=== PATIENT | male | born 1960 | race Caucasian/White ===

== ENCOUNTER 2018-09-09 16:44 | Emergency (ER) | payer OTHER ==
[2018-09-09] MEDS ORDERED: MIDAZOLAM INJ 5 MG/5 ML VIAL ONE (16:57)
[2018-09-09] MEDS ORDERED: SODIUM CHLORIDE 0.9% 50ML 50 ML ONE (16:57)
[2018-09-09] MEDS ORDERED: MIDAZOLAM INJ 25 MG in SODIUM CHLORIDE 0.9% 50ML 25 ML IVPB SCH (17:00)
[2018-09-09] MEDS ORDERED: ETOMIDATE INJECTION 2 MG/ML 20ML VIAL IV ONE (17:12)
[2018-09-09] MEDS ORDERED: SUCCINYLCHOLINE CHLORIDE 200 MG/10 ML VIAL IV ONE (17:12)
[2018-09-09] MEDS ORDERED: MIDAZOLAM INJ 5 MG/5 ML VIAL IV ONE (17:12)
[2018-09-09] MEDS ORDERED: SODIUM CHLORIDE 0.9% 1000ML 1,000 ML ONE (17:20)
[2018-09-09] MEDS ORDERED: VECURONIUM BROMIDE 10 MG VIAL IV ONE (17:22)
--- NOTE | 2018-09-09 17:26 | ED.PDOC ---
History of Present Illness - General Chief Complaint: Cardiac Respiratory Arrest Time Seen by Provider: 09/09/18 17:11 Source: RN notes reviewed - History of Present Illness Initial Comments: THIS PATIENT WAS IN THE WAITING ROOM WAITING FOR A FAMILY MEMBER WHEN HE SUDDENLY COLLAPSED AND WENT INTO CARDIAC ARREST. HE WAS PLACED IN A STRETCHER AND BROUGHT INTO ROOM ONE WHERE A STRIP REVEALED HIM TO BE IN VENTRICULAR TACHYCARDIA, HE WAS PULSELESS AND CYANOTIC. CHEST COMPRESSIONS WERE STARTED AND A LINE PERIPHERAL LINE WAS PLACED. HE WAS BAGGED AND THEN I INTUBATED HIM WITH AN 8 MM MOZAMBICAN ENDOTRACHEAL TUBE. AFTER ABOUT 10 MINUTES OF CHEST COMPRESSION WE OBTAINED A PULSE AND A BLOOD PRESSURE. EVIDENTLY HE HAD DEVELOPED ATRIAL FIBRILLATION AND HAD BEEN DEFIBRILLATED TWICE, LAST TIME THIS PAST WEDNESDAY. DR. MALONE AND DR. Jackson HAVE BEEN TAKING CARE OF HIM. HE IS ON ELIQUIS AND METOPROLOL AND AMIODARONE. Timing/Duration: other - JUST CLAIMS DIRECTOR Severity: severe Activities at Onset: rest Associated Symptoms: other - THE PATIENT IS UNCONCSIOUS Allergies/Adverse Reactions: Allergies NO KNOWN ALLERGY Allergy (Verified 09/09/18 16:57) Review of Systems - Review of Systems Unable to Obtain Due To: intubated Past Medical History (General) - Patient Medical History Other Surgeries:: RECENT CARDIOVERSION Physical Exam - Physical Exam General Appearance: Other - PULSELESS Eyes, Ears, Nose, Throat Exam: PERRL/EOMI Neck: other - INITIALLY NO CAROTID PULSES NOTED Respiratory: other - RESPIRATORY ARREST Cardiovascular/Chest: other - PULSELESS Gastrointestinal/Abdominal: normal bowel sounds, soft Rectal Exam: deferred Skin Exam: cyanosis Progress - Progress Progress: 09/09/18 17:[address] RAUSCH AT [facility] FOR TRANSPORTATION-HE ACCEPTS THE PATIENT THE ENDOTRACHEAL TUBE IS ABOVE MARSHAL BP STILL IN THE MID 90'S - WILL START PRESSORS. NOREPINEPHRINE DRIP Procedures - Intubation Time of Intubation: 17:01 Intubation Method: orotracheal Tube Size (cm): 8.0 Medications: Pancuronium, Succinylcholine, Versed Intubation Complications: no complications Post Intubation Xray: Yes - TUBE SEEMS ABOVE MARSHAL Departure - Departure Clinical Impression: Cardiopulmonary arrest with successful resuscitation, Cardiac arrest, Respiratory arrest Time of Disposition: 17:59 Disposition: Transfer to Hospital Condition: Serious Critical Care Note - Critical Care Note Total Time (mins): 70 Comments: CRITICAL EVENT: CARDIOPULMONARY ARREST CRITICAL FINDINGS: VENTRICULAR FIBRILLATION CRITICAL ACTIONS: CPR PER ACLS PROTOCOL. INTUBATION, TREAMENT OF BP WITH PRESSORS, VENTILATION TRANSFER TO HIGHER LEVEL OF CARE CRITICAL TIME: 70 SYSTEMS AT RISK: CARDIOVASCULAR, NEUROLOGICAL Transfer to Outside Facility - Transfer Information Accepting Provider:: DR. RAUSCH Accepting Facility: [facility]
--- NOTE | 2018-09-09 17:27 | RAD ---
EXAM DESCRIPTION: Chest,1 View CLINICAL HISTORY: 58 years Male intubation COMPARISON: None TECHNIQUE: A single frontal projection of the chest is obtained. FINDINGS: Heart: Allowing for magnification factors related to AP portable technique and large body habitus , the heart is moderately enlarged Vasculature: The aorta is unremarkable. There is mild prominence of the pulmonary vascularity. Mediastinum: Unremarkable otherwise. No evidence of mass or adenopathy. Lungs: Faint patchy alveolar opacification is present in the upper and mid right lung with atelectasis and/or pneumonia. Suspect compressive atelectasis in the right lung base secondary to a small right pleural effusion. Increased density in the left lung base obscures the left hemidiaphragm, also consistent with atelectasis and/or pneumonia Pleural spaces: A right pleural effusion also tracks along the lateral right hemithorax. There is blunting of the left costophrenic angle consistent with scarring or a small pleural effusion. There are no pneumothoraces. Osseous structures: There is no evidence of acute fracture, osseous destruction or osteoblastic lesions. There are diffuse enthesopathic changes including a rolling pattern of ossification in the thoracic spine consistent with diffuse idiopathic skeletal hyperostosis (DISH). Tubes and catheters: There is an endotracheal tube which terminates above the ramu at a distance measuring 4 cm. Upper abdomen: No acute findings. Chest wall: Unremarkable. IMPRESSION: Bilateral atelectasis and/or pneumonia with relative sparing of the left upper lobe. Suspect fluid overload with cardiomegaly and pleural effusions Remainder of findings as described above. Electronically signed by: Edith Winn MD 09/09/2018 5:24 PM BODY [facility]ELDER
[2018-09-09 17:57] VITALS: TEMP 96.3
[2018-09-09] MEDS ORDERED: NOREPINEPHRINE BITARTRATE 4 MG in DEXTROSE 5% 250ML 250 ML IVPB SCH (18:00)
[2018-09-09 18:02] VITALS: BP 90/65; O2SAT 100
[2018-09-09] MEDS ORDERED: DEXTROSE 5% 250ML 250 ML ONE (18:04)
[2018-09-09] MEDS ORDERED: NOREPINEPHRINE BITARTRATE 4 MG/4 ML VIAL IVPB ONE (18:04)
[2018-09-09] MEDS ORDERED: AMIODARONE IV (LOAD) 150 MG in DEXTROSE 5% 100ML 100 ML IVPB ONE (18:35)
[2018-09-09] MEDS ORDERED: AMIODARONE IV (MAINT) 900 MG in DEXTROSE 5% (AVIVA) 500ML 500 ML IVPB SCH (18:37)
[2018-09-09] MEDS ORDERED: AMIODARONE HCL 150 MG/3 ML VIAL IVPB ONE ×2 (18:47→18:52)
[2018-09-09] MEDS ORDERED: DEXTROSE 5% 100ML 100 ML IVPB ONE (18:48)
[2018-09-09] MEDS ORDERED: WATER FOR INJ 10 ML VIAL INJ ONE (18:54)
[2018-09-09] MEDS ORDERED: ATROPINE 1 MG/10 ML SYG IV ONE (19:00)
== END 2018-09-09 19:20 | disposition short-term general hospital (02) ==
LOC: EDBD 16:44 → ER 16:44
DX: I46.9 Cardiac arrest, cause unspecified (principal); R09.2 Respiratory arrest; I48.91 Unspecified atrial fibrillation; R00.1 Bradycardia, unspecified; I49.3 Ventricular premature depolarization; Z79.01 Long term (current) use of anticoagulants; Z79.899 Other long term (current) drug therapy
CPT/HCPCS: 31500; 36415; 71045; 80048; 80076; 81001; 82550; 82553; 83880; 84484; 85025; 85379; 85610; 85730; 92950; 93005; 94002; 94770; A4216; J0282; J0330; J2250; J7030; J7060